=== PATIENT | male | born 1950 | race Caucasian/White ===

== ENCOUNTER 2017-07-24 23:08 | Observation (INO) ==
[2017-07-25 02:40] LABS: Risk Ratio 1.93; VLDL CHOLESTEROL 14.4 MG/DL
[2017-07-25] MEDS ORDERED: ACETAMINOPHEN 325 MG TABLET PO PRN (05:24)
[2017-07-25] MEDS ORDERED: ONDANSETRON 4 MG/2 ML VIAL IV PRN (05:24)
[2017-07-25] MEDS ORDERED: MORPHINE 4 MG/1 ML VIAL IV PRN (05:24)
[2017-07-25 08:35] LABS: Basophils % 0.5 % (0.0-0.8); Eosinophils # 0.1 10*3/uL (0.0-0.87); Eosinophils % 1.4 % (0.00-10.9); Hematocrit 39.9 VOL% (42.0-52.0); Hemoglobin 14.2 GM/DL (14.0-18.0); Immature Granulocytes % 0.2 %; Immature Granulocytes Absolute 0.01 #; Lymphocytes # 1.3 10*3/uL (1.4-4.0); Lymphocytes % 20.9 % (21.2-54.2); Mean Corpuscular HGB Conc 35.6 GM/DL (32-36); Mean Corpuscular Hemoglobin 30 PG (27-34); Mean Corpuscular Volume 83.8 FL (87-102); Mean Platelet Volume 11.1 FL (9.6-12.0); Monocytes # 0.8 10*3/uL (0.11-0.8); Monocytes % 11.9 % (1.7-12.7); Neutrophils # 4.1 10*3/uL (1.4-7.4); Neutrophils % 65.1 % (38.7-73.9); Platelet Count 154 T/CUMM (130-400); Red Blood Count 4.76 MC/CUMM (3.8-5.5); Red Cell Distribution Width 13.9 % (9.3-17.3); White Blood Count 6.3 T/CUMM (4-12)
[2017-07-25] MEDS ORDERED: ENOXAPARIN 40 MG/0.4 ML SYRINGE SUBCUT SCH (09:00)
[2017-07-25 09:12] LABS: Albumin 3.3 G/DL (3.4-5.0); Bilirubin,Total 1.1 MG/DL (0.2-1.0); Calcium 8.6 MG/DL (8.5-10.1); Osmolality,Calculated 279.4 MOS/KG (273-304); Potassium 4.3 MMOL/L (3.5-5.1); Total Protein 7.1 G/DL (6.4-8.3)
[2017-07-25] MEDS: ASPIRIN EC 81 MG TABLET PO SCH ×2 (09:33→09:36)
[2017-07-25] MEDS: PANTOPRAZOLE 40 MG TABLET PO SCH (09:33)
[2017-07-25] MEDS ORDERED: ENOXAPARIN 80 MG/0.8 ML SYRINGE SUBCUT ONE (09:38)
[2017-07-25] MEDS ORDERED: MAGNESIUM SULF RIDER 2 GM in PREMIX 1 EACH IV PRN (16:16)
[2017-07-25] MEDS ORDERED: POTASSIUM CHLORIDE RIDER 10 MEQ in PREMIX 1 EACH IV PRN (16:16)
[2017-07-25] MEDS: ATORVASTATIN 80 MG TABLET PO SCH (21:03)
[2017-07-26] MEDS ORDERED: diphenhydrAMINE CAP 25 MG CAPSULE PO ONE (06:30)
[2017-07-26] MEDS ORDERED: DIAZEPAM 5 MG TABLET PO ONE (06:30)
[2017-07-26] MEDS ORDERED: SODIUM CHLORIDE 0.9% 1,000 ML IV SCH (07:00)
[2017-07-26 07:48] LABS: Basophils % 0.6 % (0.0-0.8); Eosinophils # 0.1 10*3/uL (0.0-0.87); Hematocrit 41.4 VOL% (42.0-52.0); Hemoglobin 14.3 GM/DL (14.0-18.0); Immature Granulocytes % 0.3 %; Immature Granulocytes Absolute 0.02 #; Lymphocytes # 1.1 10*3/uL (1.4-4.0); Lymphocytes % 15.3 % (21.2-54.2); Mean Corpuscular HGB Conc 34.5 GM/DL (32-36); Mean Corpuscular Hemoglobin 30 PG (27-34); Mean Corpuscular Volume 86.3 FL (87-102); Mean Platelet Volume 11.4 FL (9.6-12.0); Monocytes # 0.8 10*3/uL (0.11-0.8); Monocytes % 11.3 % (1.7-12.7); Neutrophils # 5.2 10*3/uL (1.4-7.4); Neutrophils % 71.5 % (38.7-73.9); Platelet Count 154 T/CUMM (130-400); Red Cell Distribution Width 13.9 % (9.3-17.3); White Blood Count 7.3 T/CUMM (4-12)
[2017-07-26 08:21] LABS: Calcium 8.5 MG/DL (8.5-10.1); Osmolality,Calculated 279.5 MOS/KG (273-304); Potassium 4.1 MMOL/L (3.5-5.1)
[2017-07-26] MEDS: LISINOPRIL 10 MG TABLET PO SCH (09:06)
[2017-07-26] MEDS: METOPROLOL SUCCINATE XL 25 MG TABLET PO SCH (09:06)
[2017-07-26] MEDS ORDERED: HEPARIN/NACL 0.9% 2 UNITS/ML 500 ML IV ONE ×2 (12:05→12:57)
[2017-07-26] MEDS ORDERED: NITROGLYCERIN DRIP 50 MG/250 ML BOTTLE IV ONE (12:58)
[2017-07-26] MEDS ORDERED: VERAPAMIL 5 MG/2 ML VIAL ONE (12:58)
[2017-07-26] MEDS ORDERED: MIDAZOLAM 2 MG/2 ML VIAL ONE (13:10)
[2017-07-26] MEDS ORDERED: fentaNYL 100 MCG/2 ML VIAL ONE (13:11)
[2017-07-26] MEDS ORDERED: ENOXAPARIN 60 MG/0.6 ML SYRINGE ONE (13:29)
[2017-07-26] MEDS ORDERED: ENOXAPARIN 30 MG/0.3 ML SYRINGE ONE (13:30)
[2017-07-26] MEDS ORDERED: TIROFIBAN 5,000 MCG/100 ML PREMIX IV ONE (13:44)
[2017-07-26] MEDS ORDERED: CLOPIDOGREL 300 MG TABLET ONE (14:10)
[2017-07-26] MEDS: PANTOPRAZOLE 40 MG TABLET PO SCH (14:52)
[2017-07-26] MEDS: ASPIRIN EC 81 MG TABLET PO SCH (14:52)
[2017-07-26] MEDS: ATORVASTATIN 80 MG TABLET PO SCH (22:14)
[2017-07-27 05:39] LABS: Basophils % 0.3 % (0.0-0.8); Eosinophils # 0.1 10*3/uL (0.0-0.87); Eosinophils % 1.1 % (0.00-10.9); Hematocrit 42.3 VOL% (42.0-52.0); Hemoglobin 14.5 GM/DL (14.0-18.0); Immature Granulocytes % 0.3 %; Immature Granulocytes Absolute 0.02 #; Lymphocytes # 0.7 10*3/uL (1.4-4.0); Lymphocytes % 9.6 % (21.2-54.2); Mean Corpuscular HGB Conc 34.3 GM/DL (32-36); Mean Corpuscular Hemoglobin 30 PG (27-34); Mean Platelet Volume 11.4 FL (9.6-12.0); Monocytes % 12.7 % (1.7-12.7); Neutrophils # 5.8 10*3/uL (1.4-7.4); Platelet Count 144 T/CUMM (130-400); Red Blood Count 4.92 MC/CUMM (3.8-5.5); Red Cell Distribution Width 13.6 % (9.3-17.3); White Blood Count 7.6 T/CUMM (4-12)
[2017-07-27 06:13] LABS: Calcium 8.8 MG/DL (8.5-10.1); Osmolality,Calculated 278.5 MOS/KG (273-304)
[2017-07-27] MEDS: METOPROLOL SUCCINATE XL 25 MG TABLET PO SCH (08:47)
[2017-07-27] MEDS: LISINOPRIL 10 MG TABLET PO SCH (08:47)
[2017-07-27] MEDS: ASPIRIN EC 81 MG TABLET PO SCH (08:47)
[2017-07-27] MEDS: PANTOPRAZOLE 40 MG TABLET PO SCH (08:48)
[2017-07-27] MEDS ORDERED: CLOPIDOGREL 75 MG TABLET PO SCH (09:00)
[2017-07-27] MEDS ORDERED: amLODIPine 5 MG TABLET PO SCH (09:00)
[2017-07-27 11:38] VITALS: BP 126/75
== END 2017-07-27 13:30 | disposition home or self-care (01) ==
LOC: INTOOBSV 07-25 00:46 → SUATTDRO 07-25 00:55 → N.5E 07-25 00:55 → N.TELES 07-26 14:50
PROVIDERS: ADMIT Internal Medicine; ATTEND Internal Medicine
PROC: CLCCHCL (ICD-10-PCS; 2017-07-26 13:45)